=== PATIENT | female | born 1965 | race Caucasian/White ===

== ENCOUNTER 2018-11-06 09:58 | Emergency (ER) | payer OTHER, MEDICARE ==
[~2018-11-06] VITALS: Ht 162.6 cm; Wt 51.7 kg
[~2018-11-06 09:58] MED LIST: ASCORBIC ACID; AZELASTINE HCL; DIGOXIN250 MCG PO; DILTIAZEM ER360 MG PO; ESTRADIOL; GABAPENTIN; MELOXICAM7.5 MG PO; MESALAMINE; PENTASA500 MG PO; PRO AIR INHALER; RANEXA500 MG PO; WOMENS ONE DAILY; Z.0.ACYCLOVIR400 MG; Z.0.ADVAIR 250-501 E; Z.0.CARTIA XT240 MG; Z.0.NEXIUM40 MG; Z.0.PHENERGAN25 M1; Z.0.SINGULAIR10 MG
--- OUTSIDE RECORDS SUMMARY | 2018-11-06 10:01 | XMS REPORT ---
[facility] Address Unknown Phone Unavailable Care Team Providers Care Adventure Challenge Instructor Name Role Phone DR CIERA HERRERA Unavailable Unavailable Riri DUTTON Unavailable Unavailable Problems This patient has no known problems. Allergies, Adverse Reactions, Alerts This patient has no known allergies or adverse reactions. Medications This patient has no known medications. Results Test Description Test Time Test Comments Text Results Atomic Results Result Comments CT ABDOMEN/PELVIS W/WO CONTRAST 2018-01-18 15:35:50 NPO 4 hours. Do not withhold meds Procedure: CT ABDOMEN/PELVIS W/WO CONTRASTOrder Date: 01/18/2018 1:00 PMOrdering Provider: RAMAN Griggsinical Indication: ABD PAIN: Pain- Abdominal. Nausea and diarrheaComparison: NoneTECHNIQUE:The abdomen and pelvis were scanned utilizing a multidetector helical scannerfrom the diaphragm to the lesser trochanter without and with contrast. Oralcontrast was given. Low osmolar IV contrast was given. Coronal and sagittalreformations were obtained.This exam was performed according to the our departmental dose-optimizationprogram which includes automated exposure control, adjustment of the mA and/orkV according to patient size and/or use of iterative reconstruction techniques.DISCUSSION:LOWER THORAX: Normal.HEPATOBILIARY: No focal hepatic lesions. No biliary ductal dilatation. Thegallbladder is surgically absent.SPLEEN: There is a 1.9 cm low- density structure in the spleen, likely a cyst.PANCREAS: No focal masses or ductal dilatation.ADRENALS: No adrenal nodules.KIDNEYS/URETERS: No hydr onephrosis, stones, or solid mass lesions.PELVIC ORGANS/BLADDER: Unremarkable.PERITONEUM / RETROPERITONEUM: No free air or fluid.LYMPH NODES: No lymphadenopathy.VESSELS: Unremarkable.GI TRACT: No distention or wall thickening. Descending and sigmoiddiverticulosis present without diverticulitis.BONES AND SOFT TISSUES: No acute abnormality. Multilevel argx-hv-zjtkmtls discspace narrowing and endplate spurring is present.IMPRESSION:Colonic diverticulosis without diverticulitis.Previous cholecystectomy. No intrahepatic biliary ductal dilatation.Probable splenic cyst.This final report was electronically signed by Dr Jimenez Dwyer MD 01/18/20183:29 PMDictated By: DANIEL DWYERKDate: 01/18/2018 15:35 URINALYSIS WITH MICROSCOPIC 2018-01-18 14:01:00 Color (test code=UCOLR) Yellow Lt. Yellow Clarity (test code=UCLAR) Clear Glucose (test code=UGLUC) Negative Negative Bilirubin (test code=UBILI) Negative Negative Ketones (test code=UKET) Trace Negative Specific [place] (test code=USPGR) 1.020 1.005-1.030 Blood (test code=UBLD) Negative Negative PH (test code=UPH) 6.5 4.5-8.0 Protein (test code=UPROT) Negative Negative Urobilinogen (test code=U UROB) 0.2 E.U./dL >0.2 Nitrite (test code=UNITR) Negative Negative Leukocyte Esterase (test code=ULEUK) Trace Negative WBC (test code=WBCUR) 0-1 0-5 RBC (test code=RBCUR) None Seen 0-5 Epithial Cells (test code=U EPI) 0-1 0-10 Bacteria (test code=UBACT) 1+ NONE SEEN Crystals Urine (test code=URCRYS) Few Amorphous Sediment NONE SEEN [id number] 13:57:00* Test Item Value Reference Range Comments Glucose (test code=GLU) 105 mg/dl 75-110 BUN (test code=BUN) 18.0 mg/dl 6.0-17.0 Creatinine (test code=CREA) 0.4 mg/dl 0.4-1.2 Sodium (test code=NA) 143 mmol/l 137-145 Potassium (test code=K) 4.0 mmol/l 3.5-5.0 Chloride (test code=CL) 100 mmol/l 98-107 CO2 (test code=CO2) 29 mmol/l 22-30 Calcium (test code=CALC) 9.5 mg/dl 8.4-10.2 T Protein (test code=TP) 7.3 gm/dl 5.1-8.7 Albumin (test code=ALB) 4.4 gm/dl 3.5-4.6 A/G Ratio (test code=AGRAT) 1.5 % 1.1-2.2 AST (SGOT) (test code=AST) 20 U/L 11-36 ALT (SGPT) (test code=ALT) 28 U/L 11-40 Alkaline Phos (test code=ALKP) 63 U/L 47-114 Total Bilirubin (test code=TBIL) 0.3 mg/dl 0.2-1.2 Globulin (test code=GLOBU) 2.9 gm/dl 2.3-3.5 Calcium, Corrected (test code=CALCCORR) 9.2 mg/dl 8.4-10.2 Various formulas exist for corrected serum calcium results, each yielding different values. This corrected result was based on the formula: Corrected Calcium=SerumCalcium + [0.8 * ( 4 - SerumAlbumin)] EGFR if (test code=EGFRAA) >60 mL/min/1.73m\S\2 EGFR if Non- (test code=EGFRNA) >60 mL/min/1.73m\S\2 Estimated Glomerular Filtration Rate (eGFR) Reference Intervals Decision Points for 18 years and older and average body mass: >=60 Does not exclude kidney disease. 30 - 59 Suggests moderate chronic kidney disease and indicates the need for further investigation including assessment of proteinuria and cardiovascular factors. < 30 Usually indicates a need for referral for assessment and management of chronic kidney failure. Anion Gap (test code=GAP) 13 LIPASE, [id number] 13:57:00* Test Item Value Reference Range Comments Lipase (test code=LIPA) 79 U/L 8-223 TEST, Urine [id number] 13:32:00* Test Item Value Reference Range Comments (Urine) (test code=PREGU) Negative If a specimen is collected by a nurse, then you MUST fill out the Collecte d and Collected By ryan CBC WITH AUTO [id number] 13:28:00* Test Item Value Reference Range Comments WBC (test code=WBC) 3.65 10\S\3/ul 4.80-10.80 RBC (test code=RBC) 4.58 10\S\6/ul 4.20-5.40 Hemoglobin (test code=HGB) 12.8 gm/dl 12.0-14.0 Hematocrit (test code=HCT) 38.9 % 37.0-47.0 MCV (test code=MCV) 84.9 fL 81.0-99.0 MCH (test code=MCH) 27.9 pg 27.0-31.0 MCHC (test code=MCHC) 32.9 gm/dl 33.0-37.0 RDW (test code=RDWVC) 11.8 % 11.5-14.5 Platelet (test code=PLT) 201 10\S\3/ul 130-400 MPV (test code=MPV) 9.8 fL 7.4-10.4 NE% (test code=NE) 60.3 % 42.0-75.0 LY% (test code=LY) 27.7 % 13.0-42.0 MO% (test code=MO) 7.4 % 4.0-14.0 EO% (test code=EO) 3.8 % 1.0-3.0 BA% (test code=BA) 0.5 % 1.0-3.0 IG% (test code=IG%) 0.3 % 0.0-0.4 NRBC, Auto (test code=NRBC_AUTO) 0 /100WBC 0-2 US RENAL RETROPERITONEAL COMP [place] [address] Patient Name: PRECIOUS PEREZ MR #: [id number] : 1965 Age/Sex: 52/F Req #: [id number] Adm Physician: Ordered by: SCOTT DUTTON MD Report #: [id number] Location: US Room/Bed: Procedure: [id number] US/US RENAL RETROPERITONEAL COMP Exam Date: 09/30/17 Exam Time: 1324 REPOR T STATUS: Signed PROCEDURE: US RETROPERITONEAL ( KIDNEY ). COMPARISON[facility], CT, CT ABDOMEN/PELVIS WO, 02/27/2012, 13:20. INDICA TIONS: Urinary Tract Infection TECHNIQUE: [place]-scale and color sonographic i mages of the bilateral kidneys and bladder where obtained in transverse and l ongitudinal planes. FINDINGS: RIGHT KIDNEY: 11.2 cm, cortex 1. 6 cm Cysts: None Solid masses: None Stones: None Hydronephrosis: None Echogenicity: Normal LEFT KIDNEY: 11.5 cm, cortex 1.8 cm Cysts: None S olid masses: None Stones: None Hydronephrosis: None Echogenicity: Normal Bladder: Bladder is only minimally distended. Ureteral jets were not vis ualized. CONCLUSION: 1. Normal bilateral renal size and echogenicity. No hydronephrosis, stones, or focal lesions. Erin Merrill M.D. Dictated by: Erin Merrill M.D. on 09/30/2017 at 16:55 E lectronically approved by: Erin Merrill M.D. on 09/30/2017 at 16:55 Dictated By: ERIN MERRILL MD 54 Transcribed By: ELY on 09/30/171654 COPY TO: SCOTT DUTTON MD
--- OUTSIDE RECORDS SUMMARY | 2018-11-06 10:01 | XMS REPORT | Continuity of Care Document ---
Author Author [facility] Organization [facility] Address [address] [place] [address] ;vcp=[phone] Care Team Providers Care Polysomnography Technologist Name Role Phone DR CIERA HERRERA DR CIERA HERRERA Hospital Admission Diagnosis Code Admission Diagnosis Date [id number] Generalized abdominal tenderness Social History Element Description Code Description Smoking Status Code System Start Date End Date Smoking Status [id number] Never smoker SNOMED-CT Problems * No data in the system Medications SNOMED CT Description [id number] Drug Treatment Unknown Allergies * No Allergy Data in the System Results Laboratory Results Order: CBC PLATELET AUTO DIFF LOINC Test Result Flag Range Unit Date 1Leukocytes^^corrected for nucleated erythrocytes:NCnc:Pt:Bld:Qn:Automated count 3.65 L 4.80-10.80 10^3/ul 01/18/2018 13:23 789-8 1Erythrocytes:NCnc:Pt:Bld:Qn:Automated count 4.58 4.20-5.40 10^6/ul 01/18/2018 13:23 718-7 1Hemoglobin:MCnc:Pt:Bld:Qn 12.8 12.0-14.0 gm/dl 01/18/2018 13:23 4544-3 1Hematocrit:VFr:Pt:Bld:Qn:Automated count 38.9 37.0-47.0 % 01/18/2018 13:23 787-2 1Erythrocyte mean corpuscular volume:EntVol:Pt:RBC:Qn:Automated count 84.9 81.0-99.0 fL 01/18/2018 13:23 785-6 1Erythrocyte mean corpuscular hemoglobin:EntMass:Pt:RBC:Qn:Automated count 27.9 27.0-31.0 pg 01/18/2018 13:23 786-4 1Erythrocyte mean corpuscular hemoglobin concentration:MCnc:Pt:RBC:Qn:Automated count 32.9 L 33.0-37.0 gm/dl 01/18/2018 13:23 788-0 1Erythrocyte distribution width:Ratio:Pt:RBC:Qn:Automated count 11.8 11.5-14.5 % 01/18/2018 13: 777-3 1Platelets:NCnc:Pt:Bld:Qn:Automated count 201 130-400 10^3/ul 01/18/2018 13: 32853-5 1Platelet mean volume:EntVol:Pt:Bld:Qn:Automated count 9.8 A 7.4-10.4 fL 01/18/2018 13: 770-8 1Neutrophils/100 leukocytes:NFr:Pt:Bld:Qn:Automated count 60.3 42.0-75.0 % 01/18/2018 13:23 736-9 1Lymphocytes/100 leukocytes:NFr:Pt:Bld:Qn:Automated count 27.7 13.0-42.0 % 01/18/2018 13:23 5905-5 1Monocytes/100 leukocytes:NFr:Pt:Bld:Qn:Automated count 7.4 4.0-14.0 % 01/18/2018 13:23 713-8 1Eosinophils/100 leukocytes:NFr:Pt:Bld:Qn:Automated count 3.8 H 1.0-3.0 % 01/18/2018 13:23 706-2 1Basophils/100 leukocytes:NFr:Pt:Bld:Qn:Automated count 0.5 L 1.0-3.0 % 01/18/2018 13:23 1IG% 0.3 0.0-0.4 % 01/18/2018 13:23 1NRBC, Auto 0 0-2 /100WBC 01/18/2018 13:23 * Performing Lab Footnotes:* [address] [place] [address] [id number] - [address] [place] [address], [place] [address] [facility] - MD: DIRECTOR JOSE THOMAS Order: CMP COMPREHENSIVE METABOLIC PANEL LOINC Test Result Flag Range Unit Date 1Glucose 105 75-110 mg/dl 01/18/2018 13:23 1BUN 18 H 6.0-17.0 mg/dl 01/18/2018 13:23 1Creatinine 0.4 0.4-1.2 mg/dl 01/18/2018 13:23 1Sodium 143 137-145 mmol/l 01/18/2018 13:23 1Potassium 4 3.5-5.0 mmol/l 01/18/2018 13:23 1Chloride 100 98-107 mmol/l 01/18/2018 13:23 1CO2 29 22-30 mmol/l 01/18/2018 13:23 1Calcium 9.5 8.4-10.2 mg/dl 01/18/2018 13:23 1T Protein 7.3 5.1-8.7 gm/dl 01/18/2018 13:23 1Albumin 4.4 3.5-4.6 gm/dl 01/18/2018 13:23 1A/G Ratio 1.5 1.1-2.2 % 01/18/2018 13:23 1AST (SGOT) 20 11-36 U/L 01/18/2018 13:23 1ALT (SGPT) 28 11-40 U/L 01/18/2018 13:23 1Alkaline Phos 63 47-114 U/L 01/18/2018 13:23 1Total Bilirubin 0.3 0.2-1.2 mg/dl 01/18/2018 13:23 1Globulin 2.9 2.3-3.5 gm/dl 01/18/2018 13:23 1Calcium, Corrected 9.2 8.4-10.2 mg/dl 01/18/2018 13:23 Note: Various formulas exist for corrected serum calcium results, each yielding different values. This corrected result was based on the formula: Corrected Calcium=SerumCalcium + [0.8 * ( 4 - SerumAlbumin)] 1EGFR if >60 mL/min/1.73m^2 01/18/2018 13:23 1EGFR if Non- >60 mL/min/1.73m^2 01/18/2018 13:23 Note: Estimated Glomerular Filtration Rate (eGFR) Reference Intervals Decision Points for 18 years and older and average body mass: >=60 Does not exclude kidney disease. 30 - 59 Suggests moderate chronic kidney disease and indicates the need for further investigation including assessment of proteinuria and cardiovascular factors. < 30 Usually indicates a need for referral for assessment and management of chronic kidney failure. 1Anion Gap 13 01/18/2018 13:23 * Performing Lab Footnotes:* [address] [place] [address] [id number] [place] [address] THOMAS Alexander MD: DIRECTOR JOSE THOMAS Order: LIPASE SERUM LOINC Test Result Flag Range Unit Date 1Lipase 79 8-223 U/L 01/18/2018 13:23 * Performing Lab Footnotes:* [address] [place] [address] [id number] - [address] [place] [address] THOMAS Alexander MD: DIRECTOR JOSE THOMAS Order: TEST URINE LOINC Test Result Flag Range Unit Date 1Pregnancy (Urine) Negative 01/18/2018 13:23 * Performing Lab Footnotes:* 1[facility] - [id number] - [address] [place] [address] [place] Benjamin MCCAIN: DIRECTOR JOSE THOMAS Order: UA URINALYSIS WITH MICROSCOPY LOINC Test Result Flag Range Unit Date 5778-6 1Color:Type:Pt:Urine:Nom Yellow A Lt. Yellow 01/18/2018 13:23 5767-9 1Appearance:Aper:Pt:Urine:Nom Clear 01/18/2018 13:23 2349-9 1Glucose:ACnc:Pt:Urine:Ord Negative Negative 01/18/2018 13:23 5770-3 1Bilirubin:ACnc:Pt:Urine:Ord:Test strip Negative Negative 01/18/2018 13:23 2514-8 1Ketones:ACnc:Pt:Urine:Ord:Test strip Trace A Negative 01/18/2018 13:23 5811-5 1Specific gravity:Rden:Pt:Urine:Qn:Test strip 1.020 A 1.005-1.030 01/18/2018 13:23 5794-3 1Hemoglobin:ACnc:Pt:Urine:Ord:Test strip Negative Negative 01/18/2018 13:23 5803-2 1pH:LsCnc:Pt:Urine:Qn:Test strip 6.5 A 4.5-8.0 01/18/2018 13:23 77873-6 1Protein:ACnc:Pt:Urine:Ord:Test strip Negative Negative 01/18/2018 13:23 5818-0 1Urobilinogen:ACnc:Pt:Urine:Ord:Test strip 0.2 E.U./dL A 0.2 01/18/2018 13:23 5802-4 1Nitrite:ACnc:Pt:Urine:Ord:Test strip Negative Negative 01/18/2018 13:23 5799-2 1Leukocyte esterase:ACnc:Pt:Urine:Ord:Test strip Trace A Negative 01/18/2018 13:23 5821-4 1Leukocytes:Naric:Pt:Urine sed:Qn:Microscopy.light.HPF 0-1 A 0-5 01/18/2018 13:23 99915-4 1Erythrocytes:Naric:Pt:Urine sed:Qn:Microscopy.light.HPF None Seen A 0-5 01/18/2018 13:23 39184-8 1Epithelial cells.squamous:Naric:Pt:Urine sed:Qn:Microscopy.light.HPF 0-1 A 0-10 01/18/2018 13:23 5769-5 1Bacteria:Naric:Pt:Urine sed:Qn:Microscopy.light.HPF 1+ A NONE SEEN 01/18/2018 13:23 5782-8 1Crystals:Prid:Pt:Urine sed:Nom:Microscopy.light Few Amorphous Sediment A NONE SEEN 01/18/2018 13:23 * Performing Lab Footnotes:* [address] [place] [address] - [id number] - [address] [place] [address] - MD: DIRECTOR JOSE THOMAS Radiology Results Order: [id number] CT ABDOMEN/PELVIS W/WO CONTRAST* Exam Completion Date:01/18/2018 13:00 Procedure: CT ABDOMEN/PELVIS W/WO CONTRAST Order Date: 01/18/2018 1:00 P MOrdering Provider: RAMAN Griggsinical Indication: ABD PAIN: Pain- Ab dominal. Nausea and diarrheaComparison: None TECHNIQUE: The abdomen and pelvis w ere scanned utilizing a multidetector helical scannerfrom the diaphragm to the l carlos trochanter without and with contrast. Oralcontrast was given. Low osmolar IV contrast was given. Coronal and sagittalreformations were obtained.This exam was performed according to the our departmental dose-optimizationprogram which includes automated exposure control, adjustment of the mA and/orkV according to patient size and/or use of iterative reconstruction techniques.DISCUSSION:LOWER THORAX: Normal.HEPATOBILIARY: No focal hepatic lesions. No biliary ductal dilat ation. Thegallbladder is surgically absent.SPLEEN: There is a 1.9 cm low-density structure in the spleen, likely a cyst.PANCREAS: No focal masses or ductal dila tation.ADRENALS: No adrenal nodules.KIDNEYS/URETERS: No hydronephrosis, stones, or solid mass lesions.PELVIC ORGANS/BLADDER: Unremarkable.PERITONEUM / RETROPERI TONEUM: No free air or fluid.LYMPH NODES: No lymphadenopathy.VESSELS: Unremarkab le.GI TRACT: No distention or wall thickening. Descending and sigmoiddiverticulo sis present without diverticulitis.BONES AND SOFT TISSUES: No acute abnormality. Multilevel qxlm-we-trplsqzj discspace narrowing and endplate spurring is presen t.IMPRESSION:Colonic diverticulosis without diverticulitis.Previous cholecystect [place]. No intrahepatic biliary ductal dilatation.Probable splenic cyst.This final report was electronically signed by Dr Jimenez Dwyer MD 01/18/20183:29 PMDictated By: DANIEL DWYERKDate: 01/18/2018 15:35 Vital Signs * No data in the system Plan of Care * No data in the system Procedures Code Code System Procedure Name Target Site Date of Procedure CT ABDOMEN/PELVIS W/WO CONTRAST 01/18/2018 15:35 Encounters Date Code Diagnosis Status (ICD10) - B84023 GENERALIZED ABDOMINAL TENDERNESS Active Immunizations * No data in the system Functional Status * No data in the system Hospital Discharge Instructions * No data in the system
[2018-11-06 11:33] LABS: CLARITY,URINE CLEAR (CLEAR); COLOR,URINE YELLOW (YELLOW); LEUKOCYTE ESTERASE ,URINE NEGATIVE (NEGATIVE); NITRITE,URINE NEGATIVE (NEGATIVE); PROTEIN,URINE DIPSTICK NEGATIVE (NEGATIVE)
[2018-11-06 11:34] LABS: BILIRUBIN,URINE NEGATIVE (NEGATIVE); KETONES,URINE NEGATIVE (NEGATIVE); URINE UROBILINOGEN 0.2 mg/dL (0.2 - 1)
[2018-11-06 11:37] LABS: BASOPHILS % 0.5 % (0.0-1.0); EOSINOPHILS # (AUTO) 0.1 (0.0-0.4); EOSINOPHILS % 1.3 % (0.0-6.0); HEMATOCRIT 43.3 % (34.2-44.1); HEMOGLOBIN 14.5 g/dL (12.0-16.0); LYMPHOCYTES # (AUTO) 0.7 (1.0-3.2); LYMPHOCYTES % 18.6 % (18.0-39.1); MEAN CORPUSCULAR HEMOGLOBIN 29.2 pg (28-32); MEAN CORPUSCULAR HGB CONC 33.5 g/dL (31-35); MEAN CORPUSCULAR VOLUME 87.3 fL (81-99); MONOCYTES # (AUTO) 0.2 (0.2-0.8); MONOCYTES % 5.2 % (4.4-11.3); NEUTROPHILS # (AUTO) 2.9 (2.1-6.9); NEUTROPHILS % 74.1 % (38.7-80.0); PLATELET COUNT 169 x10e3/uL (140-360); RED BLOOD COUNT 4.96 x10e6/uL (3.6-5.1); RED CELL DISTRIBUTION WIDTH 12.1 % (11.7-14.4)
[2018-11-06 11:46] LABS: BACTERIA,URINE FEW /HPF; EPITHELIAL CELLS,URINE FEW /LPF; MUCUS,URINE FEW (RARE); RBC,URINE 0-5 /HPF (0-5); WBC,URINE (MAN) 0-5 /HPF (0-5)
[2018-11-06 11:52] LABS: PREGNANCY TEST, URINE NEGATIVE (NEGATIVE)
[2018-11-06 11:57] LABS: ALANINE AMINOTRANSFERASE 16 IU/L (0-55); ALBUMIN 4.5 g/dL (3.5-5.0); ALBUMIN/GLOBULIN RATIO 1.3 (0.8-2.0); ALKALINE PHOSPHATASE 60 IU/L (40-150); AMYLASE 50 U/L (25-125); ANION GAP 15.5 mmol/L (8-16); BLOOD UREA NITROGEN 11 mg/dL (7-26); BUN/CREATININE RATIO 16 (6-25); CARBON DIOXIDE 26 mmol/L (22-29); CHLORIDE 100 mmol/L (98-107); EST GLOMERULAR FILTRATION RATE > 60 ML/MIN (60-); GLUCOSE 112 mg/dL (74-118); LIPASE 24 U/L (8-78); MAGNESIUM 2.4 MG/DL (1.3-2.1); POTASSIUM 4.5 mmol/L (3.5-5.1); SODIUM 137 mmol/L (136-145)
--- NOTE | 2018-11-06 14:00 | Diagnostic Imaging Report ---
EXAM: CT Abdomen and Pelvis WITHOUT contrast INDICATION: Evaluate for stone. COMPARISON: CT abdomen pelvis 10/28/2011. TECHNIQUE: Abdomen and pelvis were scanned utilizing a multidetector helical scanner from the lung base to the pubic symphysis without administration of IV contrast. Absence of intravenous contrast decreases sensitivity for detection of focal lesions and vascular pathology. Coronal and sagittal reformations were obtained. Routine protocol was performed. IV CONTRAST: None. ORAL CONTRAST: Water RADIATION DOSE: Total DLP 162.9 mGy*cm COMPLICATIONS: None FINDINGS: LINES and TUBES: None. LOWER THORAX: Unremarkable HEPATOBILIARY: No focal hepatic lesions. No biliary ductal dilation. Status post cholecystectomy. SPLEEN: No splenomegaly. There is a 1.4 cm splenic hypodense lesion (39 Hounsfield units). PANCREAS: No focal masses or ductal dilatation. ADRENALS: No adrenal nodules KIDNEYS/URETERS: No hydronephrosis. No cystic or solid mass lesions. No stones. GI TRACT: No abnormal distention, wall thickening, or evidence of bowel obstruction. Appendix is not clearly identified. There is however no fat stranding or adenopathy in the right lower quadrant to suggest appendicitis. There is scattered colonic diverticulosis without CT evidence of diverticulitis. PELVIC ORGANS/BLADDER: Unremarkable. LYMPH NODES: No lymphadenopathy. VESSELS: Scattered atherosclerotic changes of the abdominal aorta and branch vessels. PERITONEUM / RETROPERITONEUM: No free air or fluid. BONES/SOFT TISSUES: Moderate degenerative disc changes at L2-L3. IMPRESSION: No acute findings in the abdomen or pelvis. No evidence of renal stone. A 1.4 cm splenic hypodense lesion, is likely a benign lesion such as hemangioma in the absence of malignancy history. If there is a history of a malignancy, a contrast enhanced MRI could be obtained for further evaluation. Signed by: Dr. Angy Dowell MD on 11/06/2018 1:57 PM
--- NOTE | 2018-11-06 14:45 | NUR ---
HOTEL SECURITY OFFICER AND RN IN ROOM WITH PT FOR VAGINAL INSPECTION. REDNESS AND IRRITATION NOTED.
[2018-11-06 15:08] VITALS: BP 123/69
== END 2018-11-06 15:21 | disposition home or self-care (01) ==
LOC: ER 09:58
DX: R30.0 Dysuria (principal); R10.9 Unspecified abdominal pain; R11.0 Nausea; R19.7 Diarrhea, unspecified; S30.814A Abrasion of vagina and vulva, initial encounter; E78.5 Hyperlipidemia, unspecified; K21.9 Gastro-esophageal reflux disease without esophagitis; M06.9 Rheumatoid arthritis, unspecified; B00.9 Herpesviral infection, unspecified
CPT/HCPCS: 36415; 74176; 80053; 81001; 81025; 82150; 83690; 83735; 85025; 87086; 99284

== ENCOUNTER → 2023-04-07 | Outpatient (CLI) | payer MEDICARE, OTHER | LOC: RAD 11:09 | PROVIDERS: ATTEND Internal Medicine Gastroenterology | DX: K59.09 Other constipation (principal); K64.4 Residual hemorrhoidal skin tags | CPT/HCPCS: 74018 ==

== ENCOUNTER 2025-07-13 07:21 | Emergency (ER) | payer MEDICARE, OTHER ==
[~2025-07-13] VITALS: Ht 162.6 cm; Wt 62.1 kg
[2025-07-13 07:28] VITALS: TEMP 98.4
[2025-07-13] MEDS ORDERED: ONDANSETRON HCL INJ 2MG/ML 2ML 2 MG/ML VIAL IV STA (07:38)
[2025-07-13 08:04] LABS: BASOPHILS % 0.5 % (0.0-1.0); EOSINOPHILS % 0.0 % (0.0-6.0); LYMPHOCYTES % 6.0 % (18.0-39.1); MONOCYTES % 2.8 % (4.4-11.3); NEUTROPHILS % 90.2 % (38.7-80.0); RED CELL DISTRIBUTION WIDTH 12.5 % (11.7-14.4)
[2025-07-13 08:17] LABS: EST GLOMERULAR FILTRATION RATE 100.0 ML/MIN (>=60); INR 0.9
[2025-07-13] MEDS: SODIUM CHLORIDE 0.9% 1000ML 1,000 ML IV STA (09:15)
[2025-07-13] MEDS: KETOROLAC TROMETHAMINE 30 MG/ML VIAL IV STA (09:16)
[2025-07-13] MEDS: DIPHENHYDRAMINE HCL INJ 50 MG/ML VIAL IV ONE (09:16)
[2025-07-13] MEDS: METOCLOPRAMIDE HCL 10 MG/2ML VIAL IV ONE (09:17)
[2025-07-13] MEDS ORDERED: IOPAMIDOL 370 MG/ML 100 ML INFUS..BTL INJ ONE (09:20)
[2025-07-13 11:42] LABS: AMPHETAMINES SCREEN,URINE NEGATIVE (NEGATIVE); CANNABINOIDS SCREEN,URINE NEGATIVE (NEGATIVE); COCAINE SCREEN,URINE NEGATIVE (NEGATIVE); LEUKOCYTE ESTERASE ,URINE NEGATIVE (NEGATIVE); METHADONE SCREEN, URINE NEGATIVE (NEGATIVE); OPIATES SCREEN,URINE NEGATIVE (NEGATIVE); PROTEIN,URINE DIPSTICK NEGATIVE (NEGATIVE); URINE UROBILINOGEN 0.2 mg/dL (0.2 - 1)
[2025-07-13 12:01] LABS: EPITHELIAL CELLS,URINE RARE /LPF; WBC,URINE (MAN) 0-5 /HPF (0-5)
[2025-07-13] MEDS ORDERED: PROMETHAZINE12.5 MG PR (12:46)
[2025-07-13 13:30] VITALS: PULSE 76; RESP 18; O2SAT 100
== END 2025-07-13 13:37 | disposition home or self-care (01) ==
LOC: ER 07:28
DX: R11.2 Nausea with vomiting, unspecified (principal); R10.9 Unspecified abdominal pain; R51.9 Headache, unspecified; E78.5 Hyperlipidemia, unspecified; K21.9 Gastro-esophageal reflux disease without esophagitis; M06.9 Rheumatoid arthritis, unspecified; Z87.19 Personal history of other diseases of the digestive system
CPT/HCPCS: 36415; 71045; 74177; 80053; 80307; 81001; 83690; 83735; 84484; 85025; 85610; 85730; 93005; 99284; J1200; J1885; J2470; J2765; J7030; Q9967